=== PATIENT | female | born 1965 | race Caucasian/White ===

== ENCOUNTER 2020-07-29 15:10 | Outpatient (CLI) | payer BC, SELFPAY ==
--- NOTE | 2020-07-29 15:27 | MM_ITS ---
WS: [id number] BILATERAL SCREENING DIGITAL MAMMOGRAM WITH CAD HISTORY: SCREENING COMPARISON: 11/17/2017 and 03/13/2014 Bilateral CC and MLO views submitted. Computer aided detection analyzed. Breast composition: The breasts are heterogeneously dense, which may obscure small masses. No suspici ous masses, microcalcifications or architectural distortion. Benign calcifications in each breast. MM/[id number] IMPRESSION: BI-RADS: 2-Benign FOLLOW UP: 1 Year Follow-up
== END 2020-07-29 15:11 | disposition home or self-care (01) ==
LOC: RADSHAW 15:13
PROVIDERS: Family Provider Family Medicine; PCP Family Medicine; Visit Provider Family Medicine
DX: Z12.31 Encounter for screening mammogram for malignant neoplasm of breast (principal)
CPT/HCPCS: 77067

== ENCOUNTER 2022-06-02 15:09 | Outpatient (CLI) | payer BC, SELFPAY ==
--- NOTE | 2022-06-02 15:35 | MM_ITS ---
WS: [id number] BILATERAL SCREENING DIGITAL TOMOSYNTHESIS MAMMOGRAM WITH CAD HISTORY: SCREEN COMPARISON: 07/29/2020, 03/13/2014 Bilateral CC and MLO views with tomosynthesis and synthetic mammography submitted. Computer aided det ection analyzed. Breast composition: The breasts are heterogeneously dense, which may obscure small masses. No suspici ous masses, microcalcifications or architectural distortion. Asymmetry in the posterior medial LEFT b reast has been stable since 2014. MM/[id number] IMPRESSION: BI-RADS: 2-Benign FOLLOW UP: 1 Year Follow-up
== END 2022-06-02 15:10 | disposition home or self-care (01) ==
LOC: RAD 15:14
PROVIDERS: PCP Family Medicine; Visit Provider Family Medicine
DX: Z12.31 Encounter for screening mammogram for malignant neoplasm of breast (principal)
CPT/HCPCS: 77063; 77067

== ENCOUNTER 2022-10-22 07:32 | Outpatient (CLI) | payer OTHER, SELFPAY ==
--- NOTE | 2022-10-22 07:41 | MR_ITS ---
WS: [id number] MRI RIGHT SHOULDER NONCONTRAST TECHNIQUE: Sagittal T2, coronal T1, T2 and proton density imaging. Axial gradient PDE imaging. CLINICAL INFORMATION: OTHER SHOULDER LESIONS R SHOULDER COMPARISON: None. FINDINGS: Moderate degenerative arthritis AC joint with mild edema. Mild downsloping acromion with slight subac romial narrowing. Mild narrowing of the subacromial space. Slight impingement distal supraspinatus. T race subacromial fluid. Tiny insertional tear at the anterior superior supraspinatus. Tendinopathy in the supraspinatus. Normal infraspinatus. Normal teres minor. Normal subscapularis. Normal biceps ten don in the bicipital groove. Normal intra-articular biceps tendon. Degenerative fraying of the glenoid labrum. Moderate to advance d degenerative arthritis of the glenohumeral joint. Normal biceps labral anchor. IMPRESSION: 1. Moderate degenerative arthritis AC joint with mild edema and mild downsloping acromion. Slight im pingement distal supraspinatus. Small amount subacromial fluid. 2. Tendinopathy supraspinatus with tiny insertional tear. 3. Rotator cuff is otherwise intact. 4. Normal biceps tendon in the bicipital groove. Intra-articular biceps tendon appears intact. 5. Moderate to advanced degenerative narrowing glenohumeral articulation with degenerative fraying o f the glenoid labrum. 6. No other acute findings.
== END 2022-10-22 07:33 | disposition home or self-care (01) ==
PROVIDERS: PCP Family Medicine; Visit Provider Family Medicine
DX: M75.81 Other shoulder lesions, right shoulder (principal); M19.011 Primary osteoarthritis, right shoulder
CPT/HCPCS: 73221

== ENCOUNTER 2022-12-09 08:27 | Outpatient (CLI) | payer OTHER, SELFPAY ==
--- NOTE | 2022-12-09 | MR_ITS ---
WS: [id number] MRI RIGHT KNEE HISTORY: POSITIVE VICKY SIGN COMPARISON: Knee radiographs 09/17/2022 Anterior cruciate ligament: Increased T2 signal in the distal ACL near its attachment to the tibial p lateau. At the attachment to the tibial plateau there is a subchondral cysts and possible loose body or avulsion fracture embedded within the distal ACL. There is no full-thickness tear. Majority of the ACL is intact. Posterior cruciate ligament: Intact. Medial collateral ligament: Intact. Posterior lateral corner structures: Intact. Medial menisci: Horizontal tear in the posterior horn extends to the inferior articular surface. Ante rior horn is normal. Lateral meniscus: Intact. Normal signal, size and shape. Extensor mechanism: Distal quadriceps tendon and patellar tendons are intact. Fluid and soft tissue: No significant joint effusion. Very small Corbin's cyst. Osseous and articular structures: Patellofemoral compartment: Normal. Medial compartment: Mild narrowing of the medial compartment. Mild chondromalacia along the weightbea ring surface of the femoral condyle and tibial plateau. No marrow edema or fracture. Lateral compartment: Very mild narrowing. Subchondral cystic changes at the base of the tibial spine. IMPRESSION: 1. Horizontal tear posterior horn medial meniscus. 2. Partial tear versus intrasubstance degeneration in the very distal ACL. Majority of the fibers of the ACL are intact. Possible loose body embedded within the distal ACL. This could potentially be an avulsion fracture from the tibial spine. 3. Very mild narrowing medial compartment and mild chondromalacia.
== END 2022-12-09 08:28 | disposition home or self-care (01) ==
LOC: RAD 08:27
PROVIDERS: PCP Family Medicine; Visit Provider Family Medicine
DX: R29.898 Other symptoms and signs involving the musculoskeletal system (principal); S83.241A Other tear of medial meniscus, current injury, right knee, initial encounter; X58.XXXA Exposure to other specified factors, initial encounter; M94.261 Chondromalacia, right knee
CPT/HCPCS: 73721

== ENCOUNTER 2023-02-17 08:07 | Day surgery (SDC) | payer OTHER, SELFPAY ==
[2023-02-17] VITALS (9 sets, daily range): BP systolic 115–173; BP diastolic 77–111; PULSE 80–100; RESP 16–18; TEMP 36.1–36.2; O2SAT 92–97; BMI 29.9
[2023-02-17] MEDS: acetaminophen 1,000 MG/100 ML PIGGYBACK 400 MG IV (08:32)
[2023-02-17] MEDS: scopolamine 1.5 Patch 1 PATCH TRANSDERMA (08:33)
[2023-02-17] MEDS: ketorolac 30 mg/mL INJ IVP (08:33)
[2023-02-17] MEDS: sodium chloride 0.9% 1,000 ML 30 ML IV (08:35)
[2023-02-17 08:56] LABS: Anion Gap 14.9 (5-19); Blood Urea Nitrogen 13 mg/dL (6-20); Calcium 9.8 mg/dL (8.5-10.5); Carbon Dioxide 23 mmol/L (22-29); Chloride 104 mmol/L (98-107); Glomerular Filtration Rate 86.6 mL/min (90-130); Glucose 102 mg/dL (65-115); Osmolality Calculated 286 mOsm/kg (285-295); Potassium 3.9 mmol/L (3.5-5.1); Sodium 138 mmol/L (136-145)
--- NOTE | 2023-02-17 09:32 | P.ANESASSM_ITS ---
Pre-Anesthetic Assessment Height/Weight: Height 1.65 m Weight 81.647 kg Temp Pulse Resp BP Pulse Ox O2 Del Method 97.2 F L 81 16 142/92 95 Room Air 02/17/23 08:22 02/17/23 08:22 02/17/23 08:22 02/17/23 08:22 02/17/23 08:22 02/17/23 08:22 Operation Date: 02/17/23 09:45 Proposed Procedures p Knee Arthroscopy Knee Arthroscopy w/ partial Menisectomy with acl debridement(Right) - Richard Carr DO s Possible Removal Loose Bodies Loose Body Removal(Right) - Richard Carr DO Was Beta Ashlee taken within 24 hours: N/A Was Clonidine taken within 24 hours: N/A Last intake: Intake Last Liquid Date 02/16/23 Last Liquid Time 18:00 Last Solid Date 02/16/23 Last Solid Time 18:00 Social No tobacco Exam alert and oriented x 3 Airway Submandibular: within normal limits Cervical ROM: within normal limits Mallampati: Class II History/ROS No significant history except as noted and No significant complaints CV/HEM Hypertension Neuropsych Depression Anesthetic Plan ASA status: 2 Anesthesia: General Risk of > 500 ml blood loss (7ml/kg in children): No Medications/Allergies Home Medications Medication Instructions Recorded Confirmed Last Taken Type escitalopram oxalate 20 mg tablet 20 mg PO DAILY 11/20/22 02/16/23 02/16/23 History (Lexapro) lisinopril 10 mg tablet 10 mg PO DAILY 11/20/22 02/16/23 02/15/23 History Allergies Allergy/AdvReac Type Severity Reaction Status Date / Time No Known Allergies Allergy Verified 02/17/23 08:18 Current Medications Generic Name Dose Route Start Last Admin Trade Name Freq PRN Reason Stop Dose Admin Sodium Chloride 1,000 mls @ 30 mls/hr 02/17/23 08:15 02/17/23 08:35 Sodium Chloride 0.9% IV 02/18/23 08:14 30 mls/hr .Q24H DEBRA Administration PFSH Anesthesia Social History (Updated 01/21/23 @ 13:08 by Meredith Mehta LPN) Smoking and tobacco/nicotine status: never used tobacco/nicotine Alcohol intake: never Data Anesthesia 02/17/23 08:31 BMP 02/17/23 08:31 Sodium 138 Potassium 3.9 Chloride 104 Carbon Dioxide 23 BUN 13 Creatinine 0.7 Glucose 102 Calcium 9.8 Cardiac Studies: 2 No Data to Display
--- NOTE | 2023-02-17 10:37 | W.PM.OPSUD ---
Surgery/Procedure H&P Update DATE OF PROCEDURE: February 17, 2023 DATE H&P PERFORMED: 01/21/23 H&P UPDATE INFORMATION: I have reviewed H&P completed within last 30 days, I have examined patient prior to procedure and No changes to prior documentation PREOP DIAGNOSIS: Right knee medial meniscus tear, ACL partial tear, possible loose bodies PRIMARY INDICATION FOR PROCEDURE: Right knee medial meniscus tear, ACL partial tear, possible loose bodies PLANNED PROCEDURE: Operation Date: 02/17/23 09:45 Proposed Procedures p Knee Arthroscopy Knee Arthroscopy w/ partial Menisectomy with acl debridement(Right) - Richard Carr DO s Possible Removal Loose Bodies Loose Body Removal(Right) - Richard Carr DO
[2023-02-17] MEDS: ceFAZolin 2,000 MG in sodium chloride 0.9% (plus) 50 ML 100 MG IV (11:32)
--- NOTE | 2023-02-17 12:11 | W.PM.BPON ---
Date of Procedure: 02/17/2023 Surgeon: Richard Carr DO Fishing Reel Assembler(s): Gurjit Carr PA-C Procedure(s) performed: Right knee diagnostic and surgical arthroscopy with partial medial meniscectomy Right knee diagnostic and surgical arthroscopy with medial plica excision Right knee diagnostic and surgical arthroscopy with extensive synovectomy (medial, lateral, patellofemoral compartments Findings of the procedure(s): Patient found to have a horizontal tear posterior horn medial meniscus with intact meniscal root. As well as a thickened medial plica patient underwent procedure as planned without any complications or issues Estimated blood loss: 5 mL Specimen(s) removed: None Post-operative diagnosis: Right knee medial meniscus tear and medial plica and extensive synovitis
--- NOTE | 2023-02-17 12:13 | P.OP_ITS ---
Operative Report Date of procedure: February 17, 2023 Surgeon: Richard Carr DO Regional Program Manager: Gurjit Carr PA-C: PA was necessary for assistance in this case with leg positioning retraction as well as assistance in instrumentation, wound closure and dressing application. Procedure: Preoperative diagnosis: Right knee medial meniscus tear post-op diagnosis: Right?knee?medial meniscus tear Right?knee?extensive synovitis Right?knee?medial plica Procedure done: Right?knee?diagnostic and surgical arthroscopy partial medial meniscectomy Right?knee?diagnostic and surgical arthroscopy with extensive synovectomy of the medial lateral and patellofemoral compartments Right?knee?diagnostic and surgical arthroscopy with medial plica excision Surgeon: Richard Carr DO Estimated blood loss: 5mL Tourniquet: No tourniquet was used IV fluids: See anesthesia record Complications: None Findings: See operative report narrative Condition: stable Disposition: same day Brief History: Patient is a 57-year-old female with right?knee?pain.? Patient has failed conservative treatment who has been worked up for right??knee?pain in the outpatient setting. MRI findings consistent with tear of the medial meniscus. talked in the office about treatment options patient would like to proceed with a right?knee?diagnostic and surgical arthroscopy with partial medial meniscectomy possible loose body and partial ACL tearing, patient understand the ins and outs of the procedure the risk benefits complication alternatives to treatment options.? Understanding risk of surgery they agree to proceed with surgical intervention.? Patient understand this may not provide patient with complete symptomatic relief of? pain as patient does have some underlying arthritis.? Understanding this and patient agree to proceed with surgical intervention all questions answered. Procedure: Patient seen and evaluated in the preoperative holding area.? Consent was reviewed and signed with patient.? Correct extremity was then marked.? Patient seen evaluated Anesthesia Department once cleared for surgery patient was taken back to the operative suite.? Patient was transported onto the OR table in supine position.? All bony prominences well-padded patient was appropriate secured to the bed.? Once appropriately anesthetized a nonsterile tourniquet was applied to the right thigh.? The right lower extremity was then prepped and draped in standard orthopedic fashion.? Final timeout performed.? Patient received appropriate preoperative antibiotics. Patient received local anesthetic of lidocaine with epinephrine into the joint as well as around the portal sites.? No tourniquet was inflated A standard 2 portal vertical incision diagnostic and surgical arthroscopy of the right?knee?was performed in standard fashion.? Small stab incision made in the inferolateral portal introduced trocar and arthroscope into the suprapatellar pouch.? Suprapatellar pouch was subsequently visualized and found to have significant synovitis but no loose bodies.? Patient had noticeable significant inflamed infrapatellar fat pad and thickening hypertrophic within the patellofemoral compartment.? ?The medial gutter was free of loose bodies I then introduced the arthroscope into the medial compartment.? Within the medial compartment I then established my inferior medial working portal utilizing spinal needle outside in technique.? Once established I then visualized our articular cartilage of the medial compartment with a valgus stress.? Patient was found to have grade 1-2 chondromalacia throughout the medial compartment.? Next I inspected the meniscus.? With an arthroscopic probe was utilized to visual? all aspects of the meniscus.? Meniscal root was found to be intact.? Meniscus was found to be torn at the body to posterior horn junction.? I then subsequently introduced a basket forceps as well as arthroscopic shaver to perform a partial medial meniscectomy to stable meniscal tissue and then utilized a thermal wand to anneal the edges.? Next, I then performed a synovectomy of the medial compartment.? This completed medial compartment work. Next a introduced the arthroscope to the intercondylar notch.? PCL and ACL were intact. PCL was found to be intact with no evidence of tear and there was no loose body embedded within the distal extent of the ACL. Patient had significant thickening of the infrapatellar fat pad spanning into the medial and lateral compartments.? I then performed an extensive synovectomy with the arthroscopic shaver of the patellofemoral medial and lateral compartments as well as the intercondylar notch. Next I introduced the arthroscope into the lateral compartment the lateral compartment was found to have grade 1-2 chondromalacia.? Lateral meniscus was found to be intact.? The root was intact.? Given the grade 1-2 chondromalacia there is no unstable cartilage pieces to perform chondroplasty.? This completed my work of the lateral compartment and then performed a synovectomy of the lateral compartment.? Next of the arthroscope was placed into the lateral gutter and this was free of loose bodies.? Finally I reintroduced the arthroscope into the patellofemoral compartment.? The patellofemoral was found to have grade 2 chondromalacia of the patellofemoral compartment.? At this point I utilized arthroscopic shaver as well as thermal wand to perform extensive synovectomy of the patellofemoral compartment. This completed my work of the patellofemoral space.? I then switch my portal sites to the medial working portal.? Completed the rest of my synovectomy and the rest of my examination arthroscopy was normal. All fluid was suctioned from the joint.? ?All instruments were withdrawn.? Portal sites were closed with interrupted nylon suture.? portal sites were then covered with with Xeroform 4 x 4's ABD Curlex and José Miguel wrap.? Patient was then subsequently awakened from anesthesia and taken to PACU in stable condition. Disposition: Patient taken to PACU in stable condition recovering well.? Will receive appropriate discharge structure as well as pain medication postoperatively as well as? DVT prophylaxis.we will have patient follow-up with us in the office in 2 weeks.? We will weightbearing as tolerated to the right lower extremity.? Patient understands and agrees with current plan.? All questio ns answered.
[2023-02-17] MEDS: lidocaine-epi 2% 20 mL INJ 40 ML INJECTION (12:14)
--- NOTE | 2023-02-17 12:26 | PM.PACU ---
PACU note Narrative: Patient is a 57-year-old female that just underwent a right knee arthroscopy. Pt transferred to PACU in stable condition. Dressing is dry. pt is awake and alert. pt can wiggle toes and plantarflex and dorsiflex foot. pt able to perform straight leg raise, Femoral nerve intact. Distal pulses are palpable toes are warm and well-perfused. Cap refill is normal and under 2 seconds. Sensation to foot is intact. Pain is controlled. Exam: awake Disposition: discharged
--- NOTE | 2023-02-18 07:24 | ANE.PACU2 ---
Inpatient post-anesthesia follow up: Airway intact: Yes Vital signs: Temperature 97 F Pulse Rate 82 Respiratory Rate 18 Blood Pressure 131/92 Pulse Oximetry 97 Oxygen Delivery Me thod Room Air Oxygen Flow Rate Fraction of Inspir ed Oxygen Hydration adequate: Yes Nausea and vomiting: No Pain level: 3 Mental status: Baseline
== END 2023-02-17 14:00 | disposition home or self-care (01) ==
PROVIDERS: Student in an Organized Health Care Education/Training Program; PCP Family Medicine; Visit Provider Student in an Organized Health Care Education/Training Program
PROC: (CPT 29870; principal; 2023-02-17 09:45)
DX: S83.241A Other tear of medial meniscus, current injury, right knee, initial encounter (principal); X58.XXXA Exposure to other specified factors, initial encounter; M65.88 Other synovitis and tenosynovitis, other site; I10 Essential (primary) hypertension; M75.41 Impingement syndrome of right shoulder; M19.011 Primary osteoarthritis, right shoulder
CPT/HCPCS: 29876; 29881; 80048; J0131; J0690; J1885; J2704; J3010; J3490; J7030

== ENCOUNTER 2023-03-31 11:29 | Day surgery (SDC) | payer OTHER, SELFPAY ==
[2023-03-31] VITALS (15 sets, daily range): BP systolic 127–164; BP diastolic 78–115; PULSE 74–112; RESP 11–21; TEMP 36.1–36.8; O2SAT 91–98; BMI 31.7
[2023-03-31] MEDS: acetaminophen 1,000 MG/100 ML PIGGYBACK 400 MG IV (12:13)
[2023-03-31] MEDS: ketorolac 30 mg/mL INJ IVP (12:14)
[2023-03-31] MEDS: scopolamine 1.5 Patch 1 PATCH TRANSDERMA (12:14)
[2023-03-31] MEDS: midazolam 1 mg/mL INJ 5 ML 5 MG IVP (12:28)
--- NOTE | 2023-03-31 12:29 | W.PM.OPSUD ---
Surgery/Procedure H&P Update DATE OF PROCEDURE: March 31, 2023 DATE H&P PERFORMED: 03/02/23 H&P UPDATE INFORMATION: I have reviewed H&P completed within last 30 days, I have examined patient prior to procedure and No changes to prior documentation PREOP DIAGNOSIS: Right shoulder AC joint arthritis, subacromial impingement and rotator cuff PRIMARY INDICATION FOR PROCEDURE: Right shoulder AC joint arthritis, subacromial impingement, tendinopathy supraspinatus, labral fraying/tearing PLANNED PROCEDURE: Operation Date: 03/31/23 13:10 Proposed Procedures p Shoulder Arthroscopy/ right shoulder diagnostic and surgical arthroscopy(Right) - Richard Carr DO s Distal Clavicle excision(Right) - Richard Carr DO s Subacromial Decompression(Right) - DO lesly Nelson SLAP Repair/ labral debridement(Right) - DO lesly Nelson Possible Rotator Cuff Repair - Arthroscopy(Right) - Richard Carr DO
--- NOTE | 2023-03-31 12:37 | ANES.PREANE2 ---
Pre-Anesthetic Assessment Height/Weight: Height 1.63 m Weight 83.915 kg Temp Pulse Resp BP Pulse Ox O2 Del Method 97.0 F L 112 H 18 154/108 98 Room Air 03/31/23 11:47 03/31/23 11:47 03/31/23 11:47 03/31/23 11:47 03/31/23 11:47 03/31/23 11:47 Preop Diagnosis: Right shoulder AC joint arthritis, subacromial impingement and rotator cuff Operation Date: 03/31/23 13:10 Proposed Procedures p Shoulder Arthroscopy/ right shoulder diagnostic and surgical arthroscopy(Right) - Richard Lilly, DO s Distal Clavicle excision(Right) - Richard Lilly, DO s Subacromial Decompression(Right) - Richard Lilly, DO s SLAP Repair/ labral debridement(Right) - Richard Lilly, DO s Possible Rotator Cuff Repair - Arthroscopy(Right) - Richard Lilly, DO Familial anesthetic complications: None Was Beta Ashlee taken within 24 hours: N/A Was Clonidine taken within 24 hours: N/A Last intake: Intake Last Liquid Date 03/30/23 Last Liquid Time 19:00 Last Solid Date 03/30/23 Last Solid Time 19:00 Social No alcohol and No tobacco Exam alert, oriented x 3, clear to auscultation bilaterally and regular rate & rhythm Airway Mallampati: Class II Dentition: full CV/HEM Hypertension Anesthetic Plan ASA status: 2 Anesthesia: General and Regional (specify below) Risk of > 500 ml blood loss (7ml/kg in children): No Medications/Allergies Home Medications Medication Instructions Recorded Confirmed Last Taken Type escitalopram oxalate 20 mg tablet 20 mg PO DAILY 11/20/22 03/30/23 03/30/23 History (Lexapro) lisinopril 10 mg tablet 10 mg PO DAILY 11/20/22 03/30/23 03/30/23 History Allergies Allergy/AdvReac Type Severity Reaction Status Date / Time No Known Allergies Allergy Verified 03/26/23 08:32 [facility] Anesthesia Social History Smoking and tobacco/nicotine status: never used tobacco/nicotine Alcohol intake: never Data Anesthesia Cardiac Studies: No Data to Display
--- NOTE | 2023-03-31 12:38 | ANES.PROC ---
Anesthesia Procedures Procedure/Date: 03/31/23 Nerve Block ^: Nerve Block 1: Main Anesthesia: general anesthesia Time Out Performed: Yes Consent: requested by attending/covering physician, from patient, from other, risks and benefits reviewed and patient agrees to proceed Nerve block location: interscalene (R) Anesthesia monitors applied: pulse oximetry, EKG and BP cuff Nerve block position: semi sitting Anesthetic Used: ropivicaine 0.5% (20 ml) and with decadron (3 mg) Ultrasound used to: recognize landmarks, visualize and ID brachial plexus, in supraclavicular region and visualize and ID interscalene groove Nerve Stimulator Used?: No Interscalene/Femoral BLK: 2 stimuplex 22 g needle used for position and inplane approach, visualize local anesthetic spread and no vascular puncture identified Injection: neg aspiration of heme Patient Tolerated Procedure: well Complications: none
[2023-03-31] MEDS: ceFAZolin 2,000 MG in sodium chloride 0.9% (plus) 50 ML 100 MG IV (13:55)
[2023-03-31] MEDS: EPINEPHrine 1 mg/mL INJ 2 MG XX (14:34)
--- NOTE | 2023-03-31 15:22 | P.OP_ITS ---
Operative Report Date of procedure: March 31, 2023 Surgeon: Richard Carr DO Human Resources Supervisor: Gurjit Carr PA-C: PA was necessary for assistance in this case with shoulder positioning to execute the procedure, assistance with instrumentation, as well as implant fixation when necessary, assist with wound closure and dressing application. Procedure: Preoperative diagnosis Right shoulder AC joint arthritis, subacromial impingement, tendinopathy supraspinatus, labral fraying/tearing Post-op diagnosis: Right shoulder labral tear Right shoulder rotator cuff tear Right shoulder AC joint arthritis Right shoulder subacromial bursitis/impingement Procedure done: Right shoulder diagnostic and surgical arthroscopy with arthroscopic rotator cuff?repair (small) Right shoulder diagnostic and surgical arthroscopy labral debridement Right shoulder diagnostic and surgical arthroscopy acromioclavicular joint resection Right shoulder diagnostic and surgical arthroscopy subacromial decompression (acromioplasty and bursectomy) Surgeon: Richard Carr DO Estimated blood loss: 1mL IV fluids: 600 mL Implants: Arthrex 4.75 swivel lock Arthrex scorpion and suture tape Complications: None Condition: stable Disposition: same day Brief History: Patient been seen and worked up in the outpatient setting for right shoulder pain.? Pt had an MRI which showed findings below.? Patient's failed conservative treatment and has weakness.? We talked about treatment options far as nonoperative and operative intervention..? We talked about risk benefits complication alternatives surgical nonsurgical treatment options.? Understanding risk of surgery pt agrees to proceed with surgical intervention.? All questions have been answered at this time.? Patient elects proceed with surgery and consent obtained in office. IMPRESSION: 1.? Moderate degenerative arthritis AC joint with mild edema and mild downsloping acromion. Slight impingement distal supraspinatus. Small amount subacromial fluid. 2.? Tendinopathy supraspinatus with tiny insertional tear. 3.? Rotator cuff is otherwise intact. 4.? Normal biceps tendon in the bicipital groove. Intra-articular biceps tendon appears intact. 5.? Moderate to advanced degenerative narrowing glenohumeral articulation with degenerative fraying of the glenoid labrum. 6.? No other acute findings. Procedure: Patient seen evaluated in the preoperative holding area.? Consent reviewed and signed with patient.? Once again reviewed patient's MRI results as well as? planned surgical intervention.? Correct extremity marked.? Patient seen evaluated by anesthesia department received regional anesthesia.? Once ready for surgery was taken back to the operative suite.? Patient then subsequently underwent anesthesia per the anesthesia department was transported onto the OR table.? Patient was then placed into a lateral decubitus position with a beanbag and was appropriately secured to the bed.? All bony prominences well-padded.? Patient then had the right upper extremity was then prepped and draped in standard orthopedic fashion.? Patient received appropriate preoperative antibiotics.? Final timeout performed. The right upper extremity was then held in hanging from traction utilizing sterile technique.? Next started with standard diagnostic and surgical arthroscopy with posterior portal position introduced arthroscope into the glenohumeral joint.? Visualized the glenohumeral joint I then introduced a spinal needle within the rotator cuff interval to confirm appropriate anterior portal placement.? Once this was confirmed I then made my?small?incision and then introduced my arthroscopic shaver into the glenohumeral joint.? After thorough debridement, it was evident the bicep tendon was intact with no evidence of tearing or erythema. Bicep tendon was left alone. Next I evaluated the subscapularis tendon which was intact and no evidence of tear. ?Next there was significant labral tearing at biceps anchor and circumferential.? ? I then subsequently utilized a a arthroscopic shaver and thermal wand to perform a labral debridement.? This point time I then visualized the glenohumeral joint.? The glenohumeral joint was found to have grade 1 chondromalacia throughout.? Infrapatellar pouch was free of loose bodies from viewing the posterior portal.? Next a visualized the rotator cuff superiorly and there was found to be a?small?undersurface tearing of the supraspinatus tendon.? I utilized a spinal needle to shine this location.?? This completed my work within the glenohumeral joint all fluid was suctioned free of the joint.? ?Next I reintroduced the arthroscope posteriorly.? And went to the subacromial space.? I established my lateral working portal at the site of which my spinal needle was marking of the rotator cuff tear.? Thermal wand was then introduced laterally and then I subsequently performed extensive bursectomy of the subacromial space.? Patient had a large anterior bone spur.? At this point time I proceeded with my AC joint resection thermal wand was used and track to the anterior edge of the acromion and then tracked all the way to the AC joint.? Once identified the AC joint this was very arthritic in nature.? Thermal wand was placed anteriorly to establish appropriate plane for AC joint resection.? Once appropriate margins and anterior inferior and anterior capsule was released I then introduced arthroscopic shaver and a bur and performed AC joint resection of both the acromion to cope plane at the AC joint and a distal clavicle resection was then performed totaling 1 cm in size and was confirmed.? This completed my AC joint resection and I then introduced the arthroscopic shaver laterally while continuing to view posteriorly.? I then performed an acromioplasty to complete my subacromial decompression prior to fixing the rotator cuff tear.? Next the arthroscopic shaver was then used previous spinal needle spot that is marked the?small?hole in the rotator cuff this was consistent with a?small?full- thickness tear.? Given the?small?size this did not need a medial and lateral row configuration as result my plan was for a horizontal mattress stitch with a single lateral row anchor.? As result I loaded Arthrex scorpion with fiber tape and subsequently? A horizontal mattress purchase appropriately spaced to the?small?tear of the supraspinatus tendon.? At this point in time and then introduced a shaver to debride the rotator cuff footprint and decorticate the footprint in preparation for?repair, next I marked by swivel lock position.? I also utilized a ring curette to decorticate the bone. Fiber tape was then loaded into a 4.75 swivel lock I then subsequently punched and then subsequently placement 4.75 swivel lock while maintaining appropriate tension and?repair?of rotator cuff and this was advanced with excellent fixation I then had a final confirmation of appropriate?repair?of the supraspinatus rotator cuff tendon tear.? Sutures were then cut with an arthroscopic suture cutter and subsequently evaluated the rotator cuff?repair.??Repair?was found to be satisfactory shoulder was taken through range of motion and the?repair?moved as a unit with no evidence of loss of fixation. ?I then switched the arthroscope to the lateral portal to confirm this tension- free?repair.? I took the shoulder through range of motion and the rotator cuff?repair?was stable and moved as a unit. ?Next I then introduced the arthroscopic shaver posteriorly to complete my subacromial decompression appropriate complaining all the way up to the lateral edge of the acromion.? This completed the surgery.? All fluid was suctioned from the shoulder.? All instruments were removed.? The lateral incision was then closed with nylon stitches.? As well as the portal sites closed with portal nylon stitches.? Xeroform 4 x 4's ABD and tape was then applied to the right shoulder and was placed into a shoulder abduction pillow sling for rotator cuff?repair.? Patient was then awakened from anesthesia and then taken back to PACU in stable condition.? Patient tolerated procedure without any issues. Disposition: Patient taken back in stable condition recovering well.? Dressings on in place clean dry and intact.? Will be nonweightbearing to the right upper extremity.? Follow rotator cuff?repair?protocol.? Patient to follow-up with me in the office in 2 weeks.? Patient will receive appropriate discharge instruction as well as pain medication postoperatively.? All questions answered.? We will contact the office for any questions or concerns.
--- NOTE | 2023-03-31 15:25 | W.PM.BPON ---
Date of Procedure: [March 31, 2023] Surgeon: [Dr. Carr DO] Pastry Cook Apprentice(s): [Gurjit Carr PA-C] Procedure(s) performed: [Right shoulder diagnostic and surgical arthroscopy Labral debridement Small rotator cuff repair Subacromial decompression AC joint resection] Findings of the procedure(s): [Right shoulder labral tear, rotator cuff tear, subacromial bursitis and AC joint arthritis] Estimated blood loss: [1 ml] Specimen(s) removed: [N/A] Post-operative diagnosis: [Right shoulder labral tear, rotator cuff tear, subacromial bursitis and AC joint arthritis]
--- NOTE | 2023-03-31 15:27 | PM.PACU ---
PACU note Narrative: Patient is a 57-year-old female that just underwent a right shoulder arthroscopy. Patient transferred to PACU in stable condition. Pain is well controlled. shoulder Dressing on , dry and in place. Patient's operative arm is in a shoulder immobilizer. unable to perform further motor and sensation assessment due to pt still being under anesthesia. Exam: somnolent, arousable Disposition: discharged
[2023-03-31] MEDS: metoprolol tartrate 1 mg/1 mL SDV 5 mL 2.5 MG IVP ×2 (15:44→15:48)
--- NOTE | 2023-03-31 17:15 | ANE.PACU2 ---
Inpatient post-anesthesia follow up: Airway intact: Yes Vital signs: Temperature 97.9 F Pulse Rate 82 Respiratory Rate 16 Blood Pressure 136/80 Pulse Oximetry 96 Oxygen Delivery Me thod Room Air Oxygen Flow Rate 2 Fraction of Inspir ed Oxygen Hydration adequate: Yes Nausea and vomiting: No Pain level: 1 Mental status: Baseline
== END 2023-03-31 17:15 | disposition home or self-care (01) ==
PROVIDERS: PCP Family Medicine; Visit Provider Student in an Organized Health Care Education/Training Program
PROC: (CPT 29805; principal; 2023-03-31 13:00)
PROC: (CPT 23120; 2023-03-31 13:00)
PROC: (CPT 29826; 2023-03-31 13:00)
PROC: (CPT 29807; 2023-03-31 13:00)
PROC: (CPT 29827; 2023-03-31 13:00)
DX: S43.401A Unspecified sprain of right shoulder joint, initial encounter (principal); X58.XXXA Exposure to other specified factors, initial encounter; M75.101 Unspecified rotator cuff tear or rupture of right shoulder, not specified as traumatic; M19.011 Primary osteoarthritis, right shoulder; M75.51 Bursitis of right shoulder; M25.811 Other specified joint disorders, right shoulder; I10 Essential (primary) hypertension; Z79.82 Long term (current) use of aspirin
CPT/HCPCS: 29822; 29826; 29827; C1713; J0131; J0171; J0690; J1100; J1885; J2250; J2405; J2704; J2710; J2795; J3010; J3490

== ENCOUNTER 2023-06-14 13:13 | Outpatient (CLI) | payer BC, SELFPAY ==
--- NOTE | 2023-06-14 13:19 | MM_ITS ---
WS: [id number] BILATERAL 3D TOMOSYNTHESIS DIGITAL SCREENING MAMMOGRAPHY WITH CAD CLINICAL INFORMATION: SCREENING HISTORY: Screening mammogram. No current complaints. COMPARISON: 2022 TECHNIQUE: Bilateral CC and MLO views. FINDINGS: The breasts are composed of heterogeneous fibroglandular density tissue, which can limit the detectio n of small underlying mass lesions. No suspicious mass, asymmetry, calcifications, or architectural d istortion. No evidence of malignancy. Incidental punctate and lucent centered calcifications. Vascula r calcifications. MM/[place] [id number] IMPRESSION: BI-RADS: 2-Benign FOLLOW UP: 1 Year Follow-up Recommend return to annual screening mammography.
== END 2023-06-14 13:14 | disposition home or self-care (01) ==
LOC: RAD 13:13
PROVIDERS: PCP Family Medicine; Visit Provider Family Medicine
DX: Z12.31 Encounter for screening mammogram for malignant neoplasm of breast (principal)
CPT/HCPCS: 77063; 77067

== ENCOUNTER 2023-09-14 14:47 | Emergency (ER) | payer BC, SELFPAY ==
[2023-09-14 14:57] VITALS: BP 106/65; PULSE 98; RESP 18; TEMP 36.8; O2SAT 98
[2023-09-14 15:00] LABS: Basophils # 0.1 10^3/uL (0.0-0.1); Basophils % 0.5 %; Eosinophils # 0.3 10^3/uL (0.0-0.8); Eosinophils % 2.1 %; Hematocrit 38.6 % (36-47); Lymphocytes # 2.5 10^3/uL (0.8-4.8); Lymphocytes % 20.8 %; Mean Corpuscular HGB Conc 32.4 g/dL (30-55); Mean Corpuscular Hemoglobin 29.5 pg (27-33); Mean Platelet Volume 9.1 fL (7.4-10.4); Monocytes % 8.4 %; Neutrophils # 8.18 10^3/uL (1.8-7.7); Neutrophils % 67.8 %; Nucleated Red Blood Cells % 0 %; Platelet Count 313 10^3/cmm (157-399); Red Blood Count 4.24 10^6/uL (3.85-5.65); Red Cell Distribution Width 13.4 % (12.1-15.1); White Blood Count 12.06 10^3/uL (3.29-11.43)
[2023-09-14 15:18] LABS: Alanine Aminotransferase 17 U/L (0-33); Albumin Level 4.2 g/dL (3.5-5.2); Alkaline Phosphatase 65 U/L (35-105); Anion Gap 16.8 (5-19); Aspartate Amino Transferase 16 U/L (0-32); Blood Urea Nitrogen 22 mg/dL (6-20); Calcium 9.4 mg/dL (8.5-10.5); Carbon Dioxide 22 mmol/L (22-29); Chloride 104 mmol/L (98-107); Creatinine Clr Calc Pharmacy 31.6356; Globulin 3.2 g/dL (1.3-4.6); Glomerular Filtration Rate 25.7 mL/min (90-130); Glucose 99 mg/dL (65-115); Osmolality Calculated 291 mOsm/kg (285-295); Potassium 3.8 mmol/L (3.5-5.1); Sodium 139 mmol/L (136-145); Total Bilirubin 0.3 mg/dL (0.15-1.2); Total Protein 7.4 g/dL (6.6-8.7)
[2023-09-14 16:01] VITALS: BP 99/61; PULSE 79; RESP 18; O2SAT 99
--- NOTE | 2023-09-14 16:02 | CTR_ITS ---
PROCEDURE INFORMATION: Exam: CT Abdomen And Pelvis Without Contrast Exam date and time: 09/14/2023 4:20 PM Age: 58 years old Clinical indication: Vomiting; Prior surgery; Surgery date: 6+ months; Surgery type: Hyst TECHNIQUE: Imaging protocol: Computed tomography of the abdomen and pelvis without contrast. Radiation optimization: All CT scans at this facility use at least one of these dose optimization techniques: automated exposure control; mA and/or kV adjustment per patient size (includes targeted exams where dose is matched to clinical indication); or iterative reconstruction. COMPARISON: No relevant prior studies available. RADIATION DOSE METRICS: Total DLP (mGy-cm): 565.1 FINDINGS: Lungs: There is a benign calcified granuloma in the left lower lobe. Liver: The liver is normal. Gallbladder and biliary ducts: The gallbladder is normal. There is no biliary dilation. Pancreas: The pancreas is unremarkable. Spleen: The spleen is unremarkable. Adrenal glands: The adrenal glands are unremarkable. Kidneys and ureters: The kidneys are unremarkable. No hydronephrosis or stones. No ureteral dilation. Stomach and bowel: The stomach is unremarkable. The small bowel is nondilated. The cecum is mildly stool distended. The ascending and transverse contain stool but are not significantly distended. There is distal tapering to the nondistended hepatic splenic flexure and decompressed descending and proximal sigmoid colon. No sign of colonic inflammation or high-grade obstruction. Appendix: The appendix is normal. Intraperitoneal space: There is no free air or significant intraperitoneal free fluid. Vasculature: There is mild aortic atherosclerotic disease. Lymph nodes: There is no lymphadenopathy in the retroperitoneum, mesentery, pelvis or inguinal regions. Urinary bladder: The urinary bladder is nondistended, limiting assessment of wall thickness. Reproductive: The uterus is absent. There is no adnexal mass or large cyst. Bones/joints: Grade 1 degenerative anterolisthesis of L4 on L51. Spinal alignment is otherwise normal. No spinal fracture is seen. The pelvis and hips are unremarkable. Soft tissues: There is a small fat containing left inguinal hernia. CT/CT kidney stone [id number] IMPRESSION: 1. No sign of bowel obstruction or inflammatory process in the abdomen or pelvis. 2. Stool distension of the cecum without evidence of obstruction or inflammation. This finding would support a clinical diagnosis of constipation. 3. Incidental findings above.
--- NOTE | 2023-09-14 16:03 | W.ED.NAVMDI ---
HPI - Nausea/Vomiting/Diarrhea General: Chief complaint: Nausea/Vomiting/Diarrhea Stated complaint: PCP sent for fluids Time Seen by Provider: 09/14/23 15:58 Source: patient Mode of arrival: ambulatory Limitations: no limitations History of Present Illness: 58-year-old female states she has been having nausea and vomiting for the last month. States she had a hard time tolerating liquids and solids states that PCP had sent her here today concern for dehydration she has not been taking any nausea meds she has not had any imaging she denies any pain states she has had some fatigue. Associated nausea: Yes Associated symtoms: Reports fatigue and nausea; Denies chest pain, dysuria or headache(s) Review of Systems Const: Reports: fatigue; Denies: fever(s), chills, body aches or change in appetite ENMT: Denies: throat pain or dental pain Card: Denies: chest pain Resp: Denies: dyspnea GI: Reports: nausea and vomiting; Denies: abdominal pain or diarrhea : Denies: dysuria Musc: Denies: neck pain or back pain Skin/Breast: Denies: rash Neuro: Denies: headache(s) PFSH ED PFSH: Social History Smoking and tobacco/nicotine status: never used tobacco/nicotine Alcohol intake: never Physical Exam Const: COMMON NORMALS: patient oriented x3 and healthy appearing HENMT: COMMON NORMALS: normocephalic and atraumatic HEAD & SCALP: normocephalic and atraumatic Eye: COMMON NORMALS: conjunctivae normal CONJUNCTIVA: Yes conjunctivae normal Neck/C-Spine: COMMON NORMALS: full ROM and supple Chest: COMMONS NORMALS: normal inspection of the chest Resp: COMMON NORMALS: normal respiratory effort, No retractions, No use of accessory muscles and clear to auscultation bilaterally AUSCULTATION: clear to auscultation bilaterally Cardio: COMMON NORMALS: regular rate, regular rhythm and No murmurs present (Cardio) RATE: regular rate RHYTHM: regular rhythm GI: COMMON NORMALS: Normal to inspection, nondistended, normoactive bowel sounds present, Soft to palpation, non-tender and no masses PALPATION: Yes Soft to palpation Extremity: COMMON NORMALS: normal to inspection and full ROM Neuro: COMMON NORMALS: patient oriented x3, moves all extremities and no focal motor deficits Psych: COMMON NORMALS: mental status grossly normal, Normal thought process present and cooperative THOUGHT PROCESS: Normal thought process present Skin: COMMON NORMALS: no rashes or lesions noted and no wounds GENERAL SKIN EXAM: no rashes or lesions noted Course Vital Signs: Vital signs: Vital Signs Temperature 98.2 F 09/14/23 14:57 Pulse Rate 63 09/14/23 18:22 Respiratory Rate 16 09/14/23 18:22 Blood Pressure 124/78 09/14/23 18:22 Pulse Oximetry 98 09/14/23 18:22 MDM - Nausea/Vomiting/Diarrhea Medical Decision Making Patient presents here with vomiting she states been on for months she does have a slight elevation creatinine she is making urine here no signs of acute renal failure did give her IV fluids she felt improved after Zofran was able to tolerate liquids here CT showed nothing acute we will get her follow-up with surgery she is follow-up with PCP for recheck of her creatinine will prescribe her Zofran she is to return if worsening. Medical Records I reviewed the patient's medical records. Lab Data I reviewed the patient's lab results. 09/14/23 14:25 09/14/23 14:25 Radiology Impressions Abdomen/Pelvis CT 09/14/23 16:02 IMPRESSION: 1. No sign of bowel obstruction or inflammatory process in the abdomen or pelvis. 2. Stool distension of the cecum without evidence of obstruction or inflammation. This finding would support a clinical diagnosis of constipation. 3. Incidental findings above. Laboratory Results WBC 12.06 10^3/uL (3.29-11.43) H 09/14/23 14:25 RBC 4.24 10^6/uL (3.85-5.65) 09/14/23 14:25 Hgb 12.50 g/dL (11.27-16.99) 09/14/23 14:25 Hct 38.6 % (36-47) 09/14/23 14:25 MCV 91.0 fl (85-98) 09/14/23 14:25 MCH 29.5 pg (27-33) 09/14/23 14:25 MCHC 32.4 g/dL (30-55) 09/14/23 14:25 RDW 13.4 % (12.1-15.1) 09/14/23 14:25 Plt Count 313 10^3/cmm (157-399) 09/14/23 14:25 MPV 9.1 fL (7.4-10.4) 09/14/23 14:25 Neut % (Auto) 67.8 % 09/14/23 14:25 Lymph % (Auto) 20.8 % 09/14/23 14:25 [place] % (Auto) 8.4 % 09/14/23 14:25 Eos % (Auto) 2.1 % 09/14/23 14:25 Baso % (Auto) 0.5 % 09/14/23 14:25 Neut # (Auto) 8.18 10^3/uL (1.8-7.7) H 09/14/23 14:25 Lymph # (Auto) 2.5 10^3/uL (0.8-4.8) 09/14/23 14:25 [place] # (Auto) 1.0 10^3/uL (0.2-0.9) H 09/14/23 14:25 Eos # (Auto) 0.3 10^3/uL (0.0-0.8) 09/14/23 14:25 Baso # (Auto) 0.1 10^3/uL (0.0-0.1) 09/14/23 14:25 Nucleated RBC % (auto) 0 % 09/14/23 14:25 Nucleated RBCs # 0.0 /100WBC 09/14/23 14:25 Sodium 139 mmol/L (136-145) 09/14/23 14:25 Potassium 3.8 mmol/L (3.5-5.1) 09/14/23 14:25 Chloride 104 mmol/L (98-107) 09/14/23 14:25 Carbon Dioxide 22 mmol/L (22-29) 09/14/23 14:25 Anion Gap 16.8 (5-19) 09/14/23 14:25 BUN 22 mg/dL (6-20) H 09/14/23 14:25 Creatinine 2.0 mg/dL (0.5-0.9) H 09/14/23 14:25 GFR Calculation 25.7 mL/min (90-130) L 09/14/23 14:25 Glucose 99 mg/dL (65-115) 09/14/23 14:25 Calculated Osmolality 291 mOsm/kg (285-295) 09/14/23 14:25 Calcium 9.4 mg/dL (8.5-10.5) 09/14/23 14:25 Total Bilirubin 0.3 mg/dL (0.15-1.2) 09/14/23 14:25 AST 16 U/L (0-32) 09/14/23 14:25 ALT 17 U/L (0-33) 09/14/23 14:25 Alkaline Phosphatase 65 U/L (35-105) 09/14/23 14:25 Total Protein 7.4 g/dL (6.6-8.7) 09/14/23 14:25 Albumin 4.2 g/dL (3.5-5.2) 09/14/23 14:25 Globulin 3.2 g/dL (1.3-4.6) 09/14/23 14:25 TSH 3.90 uIU/mL (0.27-4.20) 09/14/23 14:25 Amorphous Sediment Not Reportable 09/14/23 17:14 All radiology interpretation(s) finalized by discharge EKG Data EKG 1: I personally reviewed and interpreted this EKG as follows: EKG interpretation date: 09/14/23 EKG interpretation time: 16:08 Interpretation: nsr hr [address] or t wave abnormalities qrs 90 qtc 434 Discharge Plan Discharge Patient Disposition: Home Clinical Impression: Vomiting Qualifiers: Vomiting type: unspecified Nausea presence: with nausea Qualified Code(s): R11.2 - Nausea with vomiting, unspecified Condition: Stable Prescriptions: New ondansetron 4 mg tablet,disintegrating 4 mg PO Q6H PRN (Reason: nausea and vomiting) Qty: 14 0RF No Action lisinopril 10 mg tablet 10 mg PO DAILY escitalopram oxalate [Lexapro] 20 mg tablet 20 mg PO DAILY hydrocodone-acetaminophen 5-325 mg tablet 1 tab PO Q6H PRN (Reason: pain) 5 Days Qty: 20 0RF Discharge Orders: Discharge ED (Routine); Ordered 09/14/23 Ordered By: Willi Irene Referrals: Gulshan Garcia MD [Physician] - 4-7 days Anaya Gilbert MD [Primary Care Provider] - Discharge Diet: Advance as tolerated Discharge Activity: Resume usual activity Patient Instructions: Acute Nausea and Vomiting (ED) Coding Level of Care Code ED [employer] Operator for Jakub Vicente
--- NOTE | 2023-09-14 16:08 | ECG_ITS ---
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 Measurements Intervals [place] Rate: 71 P: 33 MS: 161 QRS: 37 QRSD: 90 T: 67 QT: 412 QTc: 448 Interpretive Statements SINUS RHYTHM No previous ECG available for comparison Electronically Signed On 09-14-2023 18:10:28 CDT by Jersey Greer M.D. [email or web address]
[2023-09-14] MEDS: ondansetron 2 mg/ML SDV 2 mL 4 MG IVP (16:12)
[2023-09-14] MEDS: sodium chloride 0.9% 1,000 ML 999 ML IV ×2 (16:16→17:22)
[2023-09-14 17:00] VITALS: BP 125/66; PULSE 73; RESP 18; O2SAT 98
[2023-09-14 17:30] VITALS: BP 103/54; PULSE 79; RESP 16; O2SAT 90
[2023-09-14 17:53] LABS: Charge for UA Resulting for Rev
[2023-09-14 18:09] LABS: Bilirubin Urine Negative (Negative); Blood Urine Non-haemolysed trace (Negative); Glucose Urine UA Negative (Normal); Ketones Urine Trace (Negative); Leukocyte Esterase Urine 2+ (Negative); Nitrate Urine Negative (Negative); Protein Urine 3+ (Negative); Specific Gravity, Urine 1.022 (1.005-1.030); Urine Appearance Turbid (CLEAR); Urine Color Dark Yellow (Yellow); pH Urine 5.5 (5-7)
[2023-09-14 18:11] LABS: Bacteria Urine None Seen /hpf; Hyaline Casts Urine 134.87 /lpf; RBC Urine 21-50 /hpf (0-2); Squamous Epithelial Cell Urine 21-50 /hpf (0-5); WBC Urine 51-100 /hpf (0-5)
[2023-09-14 18:22] VITALS: BP 124/78; PULSE 63; RESP 16; O2SAT 98
[2023-09-14 18:59] LABS: Add Urine Culture? Yes; Fine Granular Casts Urine 0-4 /lpf; Other Casts Urine WAXY RARE /lpf
--- NOTE | 2023-09-15 10:46 | DCPLANNER ---
Sent message to general Surg- vomiting
== END 2023-09-14 18:24 | disposition home or self-care (01) ==
PROVIDERS: Physician Assistant; Emergency Provider Emergency Medicine; PCP Family Medicine
DX: R11.2 Nausea with vomiting, unspecified (principal)
CPT/HCPCS: 36415; 74176; 80053; 81003; 81015; 84443; 85025; 87086; 93005; 96361; 96374; 99285; J2405; J7030

== ENCOUNTER 2024-10-10 09:12 | Outpatient (CLI) | payer BC, SELFPAY ==
--- NOTE | 2024-10-10 09:17 | MM_ITS ---
WS: [id number] BILATERAL 3D TOMOSYNTHESIS DIGITAL SCREENING MAMMOGRAPHY WITH CAD CLINICAL INFORMATION: SCREENING HISTORY: Screening mammogram. No current complaints. COMPARISON: 2023 TECHNIQUE: Bilateral CC and MLO views. FINDINGS: The breasts are composed of heterogeneous fibroglandular density tissue, which can limit the detection of small underlying mass lesions. No suspicious mass, asymmetry, calcifications, or architectural distortion. No evidence of malignancy. Incidental punctate and lucent centered calcifications. Vascular calcifications. MM/MM [facility] tomosynthesis [id number] IMPRESSION: DENSITY: The breasts are heterogeneously dense, which may obscure small masses. BI-RADS: 2 - Benign FOLLOW UP: 1 Year Follow-up Recommend return to annual screening mammography.
== END 2024-10-10 09:13 | disposition home or self-care (01) ==
LOC: RAD 09:12
PROVIDERS: PCP Family Medicine; Visit Provider Family Medicine
DX: Z12.31 Encounter for screening mammogram for malignant neoplasm of breast (principal); R92.333 Mammographic heterogeneous density, bilateral breasts
CPT/HCPCS: 77063; 77067